=== PATIENT | female | born 1965 | race Caucasian/White ===

== ENCOUNTER 2020-09-26 07:13 | Emergency (ER) | payer OTHER ==
[~2020-09-26] VITALS: Ht 175.3 cm; Wt 78.0 kg
[2020-09-26 07:25] VITALS: BP 147/89
[2020-09-26] MEDS ORDERED: MECLIZINE HCL 12.5 MG TABLET. PO ONE (07:45)
--- NOTE | 2020-09-26 07:52 | ED.ADGEN ---
Past Medical History Past Medical History: High Cholesterol, Hypothyroid Past Surgical History: Cholecystectomy, , Hysterectomy, Other Additional Past Surgical Histo: LEFT FOOT Smoking Status: Never Smoker Alcohol Use: None General Adult EDM: Chief Complaint: EARACHE/EAR PAIN HPI: HPI: Patient is a 55 year old dizziness and ringing in her ear. Patient states she feels like things are spinning, better with rest and worse with movement. Woke up with symptoms this morning. Says she is nauseous but has not vomited. Has seen her ear nose and throat doctor for ear pain, was prescribed Augmentin and prednisone starting yesterday. Denies any fevers, headaches. Has taken Augment in in the past without problem, has not taken prednisone before. Review of Systems: Review of Systems: Constitutional: Denies fever or chills. [] Eyes: Denies change in visual acuity. [] HENT: Denies nasal congestion, but has left ear pain and fullness Respiratory: Denies cough or shortness of breath. [] Cardiovascular: Denies chest pain or edema. [] GI: Abdominal pain, nausea without vomiting : Denies dysuria. [] Musculoskeletal: Denies back pain or joint pain. [] Integument: Denies rash. [] Neurologic: Denies headache, focal weakness or sensory changes. [] Vertigo Endocrine: Denies polyuria or polydipsia. [] Lymphatic: Denies swollen glands. [] Psychiatric: Denies depression or anxiety. [] Current Medications: Current Medications Medications (Trade) Dose Ordered Sig/Colin Start Time Stop Time Status Last Admin Dose Admin Meclizine HCl (Antivert) 25 mg 1X ONCE 09/26/20 07:45 09/26/20 07:46 DC 09/26/20 07:56 25 MG Allergies: Allergies: Allergies Coded Allergies Type Severity Reaction Last Updated Verified No Known Drug Allergies 09/26/20 No Physical Exam: PE: Constitutional: Well developed, well nourished, no acute distress, non-toxic appearance. [] HENT: Normocephalic, atraumatic, bilateral external ears normal, oropharynx moist, no oral exudates, nose normal. [] Mild erythema of right TM, fluid behind left without purulence or bulging Eyes: PERRLA, EOMI, conjunctiva normal, no discharge. [] Neck: Normal range of motion, no tenderness, supple, no stridor. [] Cardiovascular:Heart rate regular rhythm, no murmur [] Lungs & Thorax: Bilateral breath sounds clear to auscultation [] Abdomen: Bowel sounds normal, soft, no tenderness, no masses, no pulsatile masses. [] Skin: Warm, dry, no erythema, no rash. [] Back: No tenderness, no CVA tenderness. [] Extremities: No tenderness, no cyanosis, no clubbing, ROM intact, no edema. [] Neurologic: Alert and oriented X 3, normal motor function, normal sensory function, no focal deficits noted. [] Leftward nystagmus Psychologic: Affect normal, judgement normal, mood normal. [] Current Patient Data: Vital Signs: Vital Signs Date Time Temp Pulse Resp B/P (MAP) Pulse Ox O2 Delivery O2 Flow Rate FiO2 09/26/20 07:25 98.6 85 16 147/89 (108) 95 Room Air 98.6 EKG: EKG: [] Heart Score: Risk Factors: Risk Factors: DM, Current or recent (<one month) smoker, HTN, HLP, family history of CAD, obesity. Risk Scores: Score 0 - 3: 2.5% MACE over next 6 weeks - Discharge Home Score 4 - 6: 20.3% MACE over next 6 weeks - Admit for Clinical Observation Score 7 - 10: 72.7% MACE over next 6 weeks - Early Invasive Strategies Radiology/Procedures: Radiology/Procedures: [] Course & Med Decision Making: Course & Med Decision Making History and physical exam consistent with peripheral vertigo. Given meclizine with resolution of symptoms. Advised patient to continue her treatment regimen prescribed by her ENT physician [] [place] Disclaimer: Naomi Disclaimer: This electronic medical record was generated, in whole or in part, using a voice recognition dictation system. Departure Departure Impression: Primary Impression: Vertigo Disposition: 01 DC HOME SELF CARE/HOMELESS Condition: IMPROVED Referrals: CIARA LERNER MD (PCP) Patient Instructions: Vertigo Scripts Meclizine Hcl (MECLIZINE HCL) 25 Mg Tablet 1 TAB PO TID for dizziness, #20 TAB Prov: ASHISH BAZAN MD 09/26/20 ASHISH BAZAN MD Sep 26, 2020 07:52
[2020-09-26] MEDS ORDERED: MECL-75 PO (08:42)
== END 2020-09-26 08:57 | disposition home or self-care (01) ==
LOC: ER 07:13
DX: R42 Dizziness and giddiness (principal); H93.11 Tinnitus, right ear; E78.00 Pure hypercholesterolemia, unspecified; E03.9 Hypothyroidism, unspecified
CPT/HCPCS: 99282; J8597

== ENCOUNTER 2020-11-28 15:16 | Emergency (ER) | payer OTHER ==
[~2020-11-28] VITALS: Ht 175.3 cm; Wt 75.0 kg
[~2020-11-28 15:16] MED LIST: MECL-75 PO
[2020-11-28 16:32] LABS: BASO # 0.1 x10^3/uL (0.0-0.2); BASO % 1 % (0-3); EOS # 0.1 x10^3/uL (0.0-0.7); EOS % 1 % (0-3); HEMATOCRIT 40.8 % (36.0-47.0); HEMOGLOBIN 14.1 g/dL (12.0-15.5); LYMPH # 1.8 x10^3/uL (1.0-4.8); LYMPH % 23 % (24-48); MEAN CORPUSCULAR HEMOGLOBIN 30 pg (25-35); MEAN CORPUSCULAR HGB CONC 35 g/dL (31-37); MEAN CORPUSCULAR VOLUME 87 fL (79-100); MONO # 0.7 x10^3/uL (0.0-1.1); MONO % 9 % (0-9); NEUT # 5.4 x10^3/uL (1.8-7.7); NEUT % 67 % (31-73); PLATELET COUNT 314 x10^3/uL (140-400); RED CELL DISTRIBUTION WIDTH 12.9 % (11.5-14.5); WHITE BLOOD COUNT 8.1 x10^3/uL (4.0-11.0)
[2020-11-28 16:38] LABS: BILIRUBIN,URINE NEGATIVE (NEG); CLARITY,URINE CLEAR; COLOR,URINE YELLOW; NITRITE,URINE NEGATIVE (NEG); PROTEIN,URINE NEGATIVE (NEG-TRACE); UROBILINOGEN,URINE 0.2 mg/dL (0.2 mg/dL)
--- NOTE | 2020-11-28 16:39 | RAD ---
Single view chest dated 11/28/2020: Comparison made to Clinical Indication: Chest pain. Findings: Single upright portable exam of the chest was performed. Heart size and mediastinal contours are with in normal limits given technique. The lungs are clear without evidence of focal consolidation. No ple ural effusion or pneumothorax. Impression:: Negative portable chest. Electronically signed by: Ramone Herrera MD (11/28/2020 4:37 PM) [id number]
[2020-11-28 16:40] LABS: BARBITURATES NEG (NEG); BENZODIAZEPINES NEG (NEG); CANNABINOIDS NEG (NEG); COCAINE NEG (NEG); METHADONE NEG (NEG); OPIATES NEG (NEG); PHENCYCLIDINE NEG (NEG)
[2020-11-28 16:42] LABS: AMPHETAMINE/METHAMPHETAMINE NEG (NEG)
[2020-11-28 16:56] LABS: BACTERIA,URINE 0 /HPF (0-FEW)
[2020-11-28 16:58] LABS: CALCIUM 9.5 mg/dL (8.5-10.1); CREATININE 0.7 mg/dL (0.6-1.0); GFR 86.2; POTASSIUM 4.3 mmol/L (3.5-5.1)
[2020-11-28 17:03] LABS: ALBUMIN 4.1 g/dL (3.4-5.0); ALBUMIN/GLOBULIN RATIO 1.4 (1.0-1.7); MAGNESIUM 2.3 mg/dL (1.8-2.4); TOTAL BILIRUBIN 0.5 mg/dL (0.2-1.0)
--- NOTE | 2020-11-28 18:32 | PHYS DOC ---
Past Medical History Past Medical History: Anxiety, High Cholesterol, Hypertension, Hypothyroid, Other Additional Past Medical Histor: TINNITUS,"INTRACRANIAL PRESSURE THING" Past Surgical History: Cholecystectomy, , Hysterectomy, Other Additional Past Surgical Histo: LEFT FOOT Smoking Status: Never Smoker Alcohol Use: None General Adult EDM: Chief Complaint: SHORTNESS OF BREATH HPI: HPI: Patient is a 55 year old female with a history of hypertension, high choles terol, anxiety, hypothyroidism, presenting to the ED today with multiple complaints. Patient states she has had intermittent episodes of elevated blood pressure for months. She states she has had episodes of nausea as well as getting scared about her blood pressure for months. She follows up with her PCP. She states the PCP has increased her blood pressure medicine dose as well as added a new blood pressure medicine. She was on carvedilol 6.25 and was increased to 12.5 mg, she also was started on losartan. She states her blood pressure is still spiking up. She appears very anxious and very fearful of everything she can think about medically. Review of Systems: Review of Systems: Constitutional: Denies fever or chills. [] Eyes: Denies change in visual acuity. [] HENT: Denies nasal congestion or sore throat. [] Respiratory: Reports shortness of breath, denies cough Cardiovascular: Reports elevated blood pressure. Denies chest pain or edema. [] GI: Denies abdominal pain, nausea, vomiting, bloody stools or diarrhea. [] : Denies dysuria. [] Musculoskeletal: Denies back pain or joint pain. [] Integument: Denies rash. [] Neurologic: Denies headache, focal weakness or sensory changes. [] [] Psychiatric: Reports anxiety Heart Score: Risk Factors: Risk Factors: DM, Current or recent (<one month) smoker, HTN, HLP, family history of CAD, obesity. Risk Scores: Score 0 - 3: 2.5% MACE over next 6 weeks - Discharge Home Score 4 - 6: 20.3% MACE over next 6 weeks - Admit for Clinical Observation Score 7 - 10: 72.7% MACE over next 6 weeks - Early Invasive Strategies Allergies: Allergies: Allergies Coded Allergies Type Severity Reaction Last Updated Verified No Known Drug Allergies 09/26/20 No Physical Exam: PE: Constitutional: Well developed, well nourished, no acute distress, non-toxic appearance. [] HENT: Normocephalic, atraumatic, bilateral external ears normal, oropharynx moist, no oral exudates, nose normal. [] Eyes: PERRLA, EOMI, conjunctiva normal, no discharge. [] Neck: Normal range of motion, no tenderness, supple, no stridor. [] Cardiovascular:Heart rate regular rhythm, no murmur [] Lungs & Thorax: Bilateral breath sounds clear to auscultation [] Abdomen: Bowel sounds normal, soft, no tenderness, no masses, no pulsatile masses. [] Skin: Warm, dry, no erythema, no rash. [] Back: No tenderness, no CVA tenderness. [] Extremities: No tenderness, no cyanosis, no clubbing, ROM intact, no edema. [] Neurologic: Alert and oriented X 3, normal motor function, normal sensory function, no focal deficits noted. [] Psychologic: Affect normal, judgement normal, mood normal. [] Current Patient Data: Labs: Laboratory Tests Test 11/28/20 16:13 White Blood Count 8.1 x10^3/uL (4.0-11.0) Red Blood Count 4.70 x10^6/uL (3.50-5.40) Hemoglobin 14.1 g/dL (12.0-15.5) Hematocrit 40.8 % (36.0-47.0) Mean Corpuscular Volume 87 fL (79-100) Mean Corpuscular Hemoglobin 30 pg (25-35) Mean Corpuscular Hemoglobin Concent 35 g/dL (31-37) Red Cell Distribution Width 12.9 % (11.5-14.5) Platelet Count 314 x10^3/uL (140-400) Neutrophils (%) (Auto) 67 % (31-73) Lymphocytes (%) (Auto) 23 % (24-48) L Monocytes (%) (Auto) 9 % (0-9) Eosinophils (%) (Auto) 1 % (0-3) Basophils (%) (Auto) 1 % (0-3) Neutrophils # (Auto) 5.4 x10^3/uL (1.8-7.7) Lymphocytes # (Auto) 1.8 x10^3/uL (1.0-4.8) Monocytes # (Auto) 0.7 x10^3/uL (0.0-1.1) Eosinophils # (Auto) 0.1 x10^3/uL (0.0-0.7) Basophils # (Auto) 0.1 x10^3/uL (0.0-0.2) Urine Collection Type Unknown Urine Color Yellow Urine Clarity Clear Urine pH 8.0 (<5.0-8.0) Urine Specific [place] <=1.005 (1.000-1.030) Urine Protein Negative mg/dL (NEG-TRACE) Urine Glucose (UA) Negative mg/dL (NEG) Urine Ketones (Stick) Negative mg/dL (NEG) Urine Blood Negative (NEG) Urine Nitrite Negative (NEG) Urine Bilirubin Negative (NEG) Urine Urobilinogen Dipstick 0.2 mg/dL (0.2 mg/dL) Urine Leukocyte Esterase Small (NEG) Urine RBC 1-2 /HPF (0-2) Urine WBC 1-4 /HPF (0-4) Urine Squamous Epithelial Cells Mod /LPF Urine Bacteria 0 /HPF (0-FEW) Sodium Level 131 mmol/L (136-145) L Potassium Level 4.3 mmol/L (3.5-5.1) Chloride Level 94 mmol/L (98-107) L Carbon Dioxide Level 26 mmol/L (21-32) Anion Gap 11 (6-14) Blood Urea Nitrogen 8 mg/dL (7-20) Creatinine 0.7 mg/dL (0.6-1.0) Estimated GFR (Cockcroft-Gault) 86.2 BUN/Creatinine Ratio 11 (6-20) Glucose Level 107 mg/dL (70-99) H Calcium Level 9.5 mg/dL (8.5-10.1) Magnesium Level 2.3 mg/dL (1.8-2.4) Total Bilirubin 0.5 mg/dL (0.2-1.0) Aspartate Amino Transferase (AST) 18 U/L (15-37) Alanine Aminotransferase (ALT) 23 U/L (14-59) Alkaline Phosphatase 66 U/L (46-116) Troponin I Quantitative < 0.017 ng/mL (0.000-0.055) YG-Rle-B-Type Natriuretic Peptide 128 pg/mL (0-124) H Total Protein 7.0 g/dL (6.4-8.2) Albumin 4.1 g/dL (3.4-5.0) Albumin/Globulin Ratio 1.4 (1.0-1.7) Thyroid Stimulating Hormone (TSH) 1.694 uIU/mL (0.358-3.74) Urine Opiates Screen Neg (NEG) Urine Methadone Screen Neg (NEG) Urine Barbiturates Neg (NEG) Urine Phencyclidine Screen Neg (NEG) Urine Amphetamine/Methamphetamine Neg (NEG) Urine Benzodiazepines Screen Neg (NEG) Urine Cocaine Screen Neg (NEG) Urine Cannabinoids Screen Neg (NEG) Ethyl Alcohol Level < 10 mg/dL (0-10) Urine Ethyl Alcohol Neg (NEG) Laboratory Tests 11/28/20 16:13 Laboratory Tests 11/28/20 16:13 Vital Signs: Vital Signs Date Time Temp Pulse Resp B/P (MAP) Pulse Ox O2 Delivery O2 Flow Rate FiO2 11/28/20 15:21 97.7 77 20 148/91 (110) 98 Room Air 97.7 EKG: EKG: [] Radiology/Procedures: Radiology/Procedures: []PROCEDURE: PORTABLE CHEST 1V Single view chest dated 11/28/2020: Comparison made to Clinical Indication: Chest pain. Findings: Single upright portable exam of the chest was performed. Heart size and media stinal contours are within normal limits given technique. The lungs are clear without evidence of focal consolidation. No pleural effusion or pneumothorax. Impression:: Negative portable chest. Electronically signed by: Ramone Herrera MD (11/28/2020 4:37 PM) [id number] DICTATED and SIGNED BY: RAMONE HERRERA MD DATE: 11/28/20 [id number] Course & Med Decision Making: Course & Med Decision Making Pertinent Labs and Imaging studies reviewed. (See chart for details) This is a 55-year-old female patient presenting to the ED today with multiple complaints. Patient has history of hypertension, anxiety among other illnesses and is complaining of feeling short of air for months, her blood pressure spiking up for months, and anxiety about health and life issues for months. Patient's labs, EKG, chest x-ray were negative for any acute findings. Blood pressure was 148/91. She was started on losartan today and is on coreg. She goes through another extensive fear of losartan stating she cannot take it with carvedilol. I spoke to patient at length. Informed her if her primary care doctor wants her to take carvedilol and losartan she needs to do it because her blood pressure still running high. RN states patient stated worrying she was put in a covid room with no negative pressure but has a scrabber. She was reassured. Patient has worried about everything medical thing she can come across. I also got Aure from the PAT team to talk to patient. They talked for a while, patient was very thankful for this visit. She was discharged to home follow-up with PCP Naomi Disclaimer: Naomi Disclaimer: This electronic medical record was generated, in whole or in part, using a voice recognition dictation system. Departure Departure Impression: Primary Impression: Anxiety Additional Impression: High blood pressure Qualified Codes: I10 - Essential (primary) hypertension Disposition: 01 DC HOME SELF CARE/HOMELESS Condition: STABLE Referrals: DIVYA CURRAN DO (PCP) Follow-up in the course of this week Patient Instructions: Anxiety and Panic Attacks, [id number], Hypertension Additional Instructions: You were evaluated in the emergency room. Please continue following up with your primary care doctor as well as a specialist. Come back to the ED at any point symptoms worsen LOLITA GONZALEZ APRN Nov 28, 2020 18:32
[2020-11-28 18:38] VITALS: BP 148/81
--- NOTE | 2020-11-29 17:19 | NUR ---
IP: Informed pt of positive COVID results and the need to quarantine for 10 days. Pt stated she is shocked because she has no symptoms, but verbalized understanding
== END 2020-11-28 18:49 | disposition home or self-care (01) ==
LOC: ER 15:16
DX: U07.1 COVID-19 (principal); I10 Essential (primary) hypertension; R11.0 Nausea; R06.02 Shortness of breath; F41.9 Anxiety disorder, unspecified; E78.00 Pure hypercholesterolemia, unspecified; E03.9 Hypothyroidism, unspecified; Z90.49 Acquired absence of other specified parts of digestive tract; Z90.710 Acquired absence of both cervix and uterus; Z98.890 Other specified postprocedural states
CPT/HCPCS: 36415; 71045; 80053; 80307; 81001; 83735; 83880; 84443; 84484; 85025; 87086; 93005; 99285; C9803; G0480; U0003

== ENCOUNTER 2021-01-04 15:34 | Emergency (ER) | payer OTHER ==
[~2021-01-04] VITALS: Ht 175.3 cm; Wt 72.0 kg
--- NOTE | 2021-01-04 16:53 | EKG ---
[facility] [address] [place] [address] Test Date: 2021-01-04 Test Time: 16:33:04 Pat Name: RENETTA SHEIKH Department: Room: Gender: F Prepress Supervisor: : [id number] Requested By: IRMA SRIVASTAVA Order Number: [id number] Reading MD: Measurements Intervals [place] Rate: 72 P: 58 AR: 126 QRS: 16 QRSD: 92 T: 28 QT: 390 QTc: 429 Interpretive Statements SINUS RHYTHM QRS(T) CONTOUR ABNORMALITY CONSIDER ANTEROLATERAL MYOCARDIAL DAMAGE T ABNORMALITY IN ANTERIOR LEADS ABNORMAL ECG RI6.01 No previous ECG available for comparison
[2021-01-04 16:59] LABS: BASO # 0.1 x10^3/uL (0.0-0.2); BASO % 1 % (0-3); EOS # 0.1 x10^3/uL (0.0-0.7); EOS % 1 % (0-3); HEMATOCRIT 42.4 % (36.0-47.0); HEMOGLOBIN 14.4 g/dL (12.0-15.5); LYMPH # 1.8 x10^3/uL (1.0-4.8); LYMPH % 21 % (24-48); MEAN CORPUSCULAR HEMOGLOBIN 30 pg (25-35); MEAN CORPUSCULAR HGB CONC 34 g/dL (31-37); MEAN CORPUSCULAR VOLUME 89 fL (79-100); MONO # 0.6 x10^3/uL (0.0-1.1); MONO % 7 % (0-9); NEUT # 5.8 x10^3/uL (1.8-7.7); NEUT % 70 % (31-73); PLATELET COUNT 342 x10^3/uL (140-400); RED BLOOD COUNT 4.76 x10^6/uL (3.50-5.40); RED CELL DISTRIBUTION WIDTH 13.4 % (11.5-14.5); WHITE BLOOD COUNT 8.3 x10^3/uL (4.0-11.0)
--- NOTE | 2021-01-04 17:15 | RAD ---
Chest AP portable 01/04/2021. Reason for exam: Chest pain. Comparison is made with a study 11/28/2020. No infiltrate or effusion is seen. Heart size and pulmonary vascularity appear normal. IMPRESSION: No acute abnormality. Electronically signed by: Juan Guthrie Jr., MD (01/04/2021 5:12 PM) [id number]
[2021-01-04 17:29] LABS: CALCIUM 8.8 mg/dL (8.5-10.1); CREATININE 0.9 mg/dL (0.6-1.0); GFR 64.5; POTASSIUM 3.5 mmol/L (3.5-5.1)
[2021-01-04 17:35] LABS: ALBUMIN 3.9 g/dL (3.4-5.0); ALBUMIN/GLOBULIN RATIO 1.6 (1.0-1.7); MAGNESIUM 2.2 mg/dL (1.8-2.4); TOTAL BILIRUBIN 0.5 mg/dL (0.2-1.0); TOTAL PROTEIN 6.4 g/dL (6.4-8.2)
[2021-01-04 17:39] LABS: CREATINE KINASE 65 U/L (26-192)
[2021-01-04] MEDS ORDERED: ALPRAZolam 0.25 MG TABLET PO ONE (18:15)
[2021-01-04 18:38] LABS: BILIRUBIN,URINE NEGATIVE (NEG); COLOR,URINE YELLOW; NITRITE,URINE NEGATIVE (NEG); PROTEIN,URINE NEGATIVE (NEG-TRACE); UROBILINOGEN,URINE 0.2 mg/dL (0.2 mg/dL)
[2021-01-04 18:40] LABS: CLARITY,URINE CLEAR
[2021-01-04 18:46] LABS: BACTERIA,URINE 0 /HPF (0-FEW); RBC,URINE 0 /HPF (0-2)
--- NOTE | 2021-01-04 18:56 | ED.ADGEN ---
Past Medical History Past Medical History: Anxiety, High Cholesterol, Hypertension, Hypothyroid Additional Past Medical Histor: TINNITUS,"INTRACRANIAL PRESSURE THING" Past Surgical History: No Surgical History Additional Past Surgical Histo: LEFT FOOT Smoking Status: Never Smoker Alcohol Use: None General Adult EDM: Chief Complaint: SHORTNESS OF BREATH HPI: HPI: Patient is a 55 year old female who presents to the emergency department with complaints of intermittent episodes of shortness of breath, palpitations, and chills. Patient reports that she had Covid in November 2020 and has been having these episodes since then. Patient reports that she has been taking 0.25 mg of Xanax for the episodes but then when she was at her primary care doctor's office yesterday her doctor told her to stop taking the Xanax and prescribed her Valium instead. Patient states she has taken the Valium today with no relief in her symptoms. She reports that she is also had some thyroid issues since having Covid and had to stop taking her thyroid medication for a short time but then was placed back on it. Patient denies any chest pain, fever, nausea, vomiting, diarrhea, abdominal pain, headache, dizziness, or body aches. She denies any swelling of her lower extremities or weakness. The patient currently denies any pain. She reports that she feels like she cannot catch her breath. Review of Systems: Review of Systems: Complete ROS is negative unless otherwise noted in HPI. Current Medications: Current Medications Medications (Trade) Dose Ordered Sig/Colin Start Time Stop Time Status Last Admin Dose Admin Alprazolam (Xanax) 0.25 mg 1X ONCE 01/04/21 18:15 01/04/21 18:16 DC 01/04/21 18:23 0.25 MG Allergies: Allergies: Allergies Coded Allergies Type Severity Reaction Last Updated Verified iodine Allergy Unknown 01/04/21 Yes Physical Exam: PE: See Above Constitutional: Well developed, well nourished, no acute distress, non-toxic appearance, anxious. [] HENT: Normocephalic, atraumatic, bilateral external ears normal, nose normal. [] Eyes: PERRLA, EOMI, conjunctiva normal, no discharge. [] Neck: Normal range of motion, no stridor. [] Cardiovascular:Heart rate regular rhythm Lungs & Thorax: Respirations even and unlabored, no retractions, no respiratory distress, no wheezing Skin: Warm, dry, no erythema, no rash. [] Extremities: No cyanosis, ROM intact, no edema. [] Neurologic: Alert and oriented X 3, normal motor, normal sensory, no focal deficits noted. [] Psychologic: Affect anxious, judgement normal, mood normal. [] Current Patient Data: Labs: Laboratory Tests Test 01/04/21 16:50 01/04/21 17:05 01/04/21 18:30 White Blood Count 8.3 x10^3/uL (4.0-11.0) Red Blood Count 4.76 x10^6/uL (3.50-5.40) Hemoglobin 14.4 g/dL (12.0-15.5) Hematocrit 42.4 % (36.0-47.0) Mean Corpuscular Volume 89 fL (79-100) Mean Corpuscular Hemoglobin 30 pg (25-35) Mean Corpuscular Hemoglobin Concent 34 g/dL (31-37) Red Cell Distribution Width 13.4 % (11.5-14.5) Platelet Count 342 x10^3/uL (140-400) Neutrophils (%) (Auto) 70 % (31-73) Lymphocytes (%) (Auto) 21 % (24-48) L Monocytes (%) (Auto) 7 % (0-9) Eosinophils (%) (Auto) 1 % (0-3) Basophils (%) (Auto) 1 % (0-3) Neutrophils # (Auto) 5.8 x10^3/uL (1.8-7.7) Lymphocytes # (Auto) 1.8 x10^3/uL (1.0-4.8) Monocytes # (Auto) 0.6 x10^3/uL (0.0-1.1) Eosinophils # (Auto) 0.1 x10^3/uL (0.0-0.7) Basophils # (Auto) 0.1 x10^3/uL (0.0-0.2) D-Dimer ([place]) < 0.27 ug/mlFEU Sodium Level 133 mmol/L (136-145) L Potassium Level 3.5 mmol/L (3.5-5.1) Chloride Level 101 mmol/L (98-107) Carbon Dioxide Level 23 mmol/L (21-32) Anion Gap 9 (6-14) Blood Urea Nitrogen 6 mg/dL (7-20) L Creatinine 0.9 mg/dL (0.6-1.0) Estimated GFR (Cockcroft-Gault) 64.5 BUN/Creatinine Ratio 7 (6-20) Glucose Level 113 mg/dL (70-99) H Calcium Level 8.8 mg/dL (8.5-10.1) Magnesium Level 2.2 mg/dL (1.8-2.4) Total Bilirubin 0.5 mg/dL (0.2-1.0) Aspartate Amino Transferase (AST) 16 U/L (15-37) Alanine Aminotransferase (ALT) 26 U/L (14-59) Alkaline Phosphatase 59 U/L (46-116) Creatine Kinase 65 U/L (26-192) Creatine Kinase MB (Mass) 0.7 ng/mL (0.0-3.6) Creatine Kinase MB Relative Index % (0-4) Troponin I Quantitative < 0.017 ng/mL (0.000-0.055) MH-Cyz-P-Type Natriuretic Peptide 198 pg/mL (0-124) H Total Protein 6.4 g/dL (6.4-8.2) Albumin 3.9 g/dL (3.4-5.0) Albumin/Globulin Ratio 1.6 (1.0-1.7) Lipase 104 U/L (73-393) Urine Collection Type Unknown Urine Color Yellow Urine Clarity Clear Urine pH 7.0 (<5.0-8.0) Urine Specific [place] <=1.005 (1.000-1.030) Urine Protein Negative mg/dL (NEG-TRACE) Urine Glucose (UA) Negative mg/dL (NEG) Urine Ketones (Stick) Trace mg/dL (NEG) Urine Blood Negative (NEG) Urine Nitrite Negative (NEG) Urine Bilirubin Negative (NEG) Urine Urobilinogen Dipstick 0.2 mg/dL (0.2 mg/dL) Urine Leukocyte Esterase Large (NEG) Urine RBC 0 /HPF (0-2) Urine WBC 1-4 /HPF (0-4) Urine Squamous Epithelial Cells Few /LPF Urine Bacteria 0 /HPF (0-FEW) Laboratory Tests 01/04/21 16:50 Laboratory Tests 01/04/21 17:05 Vital Signs: Vital Signs Date Time Temp Pulse Resp B/P (MAP) Pulse Ox O2 Delivery O2 Flow Rate FiO2 01/04/21 19:00 72 15 134/71 (92) 99 Room Air 01/04/21 17:00 98.8 98.8 EKG: EK-sinus rhythm, rate of 72, no STEMI, T wave inversion is present in the anterior leads read by Dr. Jeffries [] Heart Score: HEART Score for Chest Pain: HEART Score for Chest Pain Response (Comments) Value History Slighlty/Non-Suspicious 0 ECG Nonspecific Repolarizatio 1 Age >45 - < 65 1 Risk Factors 1 or 2 Risk Factors 1 Troponin < Normal Limit 0 Total 3 Risk Factors: Risk Factors: DM, Current or recent (<one month) smoker, HTN, HLP, family history of CAD, obesity. Risk Scores: Score 0 - 3: 2.5% MACE over next 6 weeks - Discharge Home Score 4 - 6: 20.3% MACE over next 6 weeks - Admit for Clinical Observation Score 7 - 10: 72.7% MACE over next 6 weeks - Early Invasive Strategies Radiology/Procedures: Radiology/Procedures: PROCEDURE: CHEST AP ONLY Chest AP portable 01/04/2021. Reason for exam: Chest pain. Comparison is made with a study 11/28/2020. No infiltrate or effusion is seen. Heart size and pulmonary vascularity appear normal. IMPRESSION: No acute abnormality. Electronically signed by: Juan Guthrie Jr., MD (01/04/2021 5:12 PM) [id number][] Course & Med Decision Making: Course & Med Decision Making Pertinent Labs and Imaging studies reviewed. (See chart for details) Patient presented to the emergency department with several complaints. Work-up included labs, chest x-ray, and medication. Patient CBC was unremarkable; D-dimer was not elevated; CMP revealed sodium 133, glucose of 113, BNP of 198, CK index and troponin were not elevated; urinalysis was unremarkable. Chest x-ray revealed no acute changes. EKG revealed no acute changes Patient was given 0.25 mg of Xanax in the emergency department, she reported fee ling better after taking this medication I advised the patient that her symptoms may be due to her thyroid they also could be due to post Covid complications. Patient reported that she had an appointment with nut grinder this week. I encouraged her to follow-up with nut grinder as scheduled. Advised the patient to continue taking the Xanax as previously prescribed if the Valium is not helping and to contact her primary care doctor about this concern. I advised the patient not to take Valium and Xanax at the same time. Patient's vital signs are stable throughout emergency department stay. Her oxygenation was 99% on room air and her breathing was unlabored. I encouraged patient to return to the ER if her symptoms worsened or fever develop. Patient verbalized an understanding of home care, medications, follow-up, and return to ED instructions and was in agreement with the plan of care. [] Dragon Disclaimer: Dragon Disclaimer: This electronic medical record was generated, in whole or in part, using a voice recognition dictation system. Departure Departure Impression: Primary Impression: Anxiety Additional Impression: Post-COVID syndrome Disposition: 01 DC HOME SELF CARE/HOMELESS Condition: STABLE Referrals: DIVYA CURRAN DO (PCP) Patient Instructions: Anxiety and Panic Attacks, [id number] Additional Instructions: If the Valium you were prescribed yesterday does not help as much as the Xanax that you were previously taking I would recommend that you take the Xanax instead of the Valium. Do not take both of these medications together. Follow- up with endocrinology as planned this week. Return to the emergency room if your symptoms worsen or fever develops. Problem Qualifiers IRMA SRIVASTAVA APRN Jan 04, 2021 18:56
[2021-01-04 19:00] VITALS: BP 134/71
== END 2021-01-04 19:00 | disposition home or self-care (01) ==
LOC: ER 15:34
DX: F41.9 Anxiety disorder, unspecified (principal); R06.02 Shortness of breath; R00.2 Palpitations; E78.00 Pure hypercholesterolemia, unspecified; I10 Essential (primary) hypertension; E03.9 Hypothyroidism, unspecified; Z88.8 Allergy status to other drugs, medicaments and biological substances
CPT/HCPCS: 36415; 71045; 80053; 81001; 82553; 83690; 83735; 83880; 84484; 85025; 85379; 87086; 93005; 99285

== ENCOUNTER 2021-02-16 20:18 | Emergency (ER) | payer OTHER ==
[~2021-02-16] VITALS: Ht 175.3 cm; Wt 71.0 kg
[2021-02-16 20:30] VITALS: BP 133/67
[2021-02-16] MEDS ORDERED: ONDANSETRON PF 4 MG/2 ML VIAL. IVP ONE (21:30)
[2021-02-16] MEDS ORDERED: MECLIZINE HCL 12.5 MG TABLET. PO ONE (21:30)
[2021-02-16] MEDS ORDERED: DEXAMETHASONE SOD PHOS 4 MG/ML VIAL IVP ONE (21:30)
[2021-02-16] MEDS ORDERED: IV NORMAL SALINE 1000ML BAG 1,000 ML IV ONE ×2 (21:30)
[2021-02-16 21:34] LABS: BASO % 0 % (0-3); EOS % 0 % (0-3); HEMOGLOBIN 13.7 g/dL (12.0-15.5); LYMPH % 10 % (24-48); MEAN CORPUSCULAR HEMOGLOBIN 31 pg (25-35); MEAN CORPUSCULAR HGB CONC 34 g/dL (31-37); MEAN CORPUSCULAR VOLUME 89 fL (79-100); MONO # 0.7 x10^3/uL (0.0-1.1); MONO % 7 % (0-9); NEUT # 8.6 x10^3/uL (1.8-7.7); NEUT % 83 % (31-73); PLATELET COUNT 289 x10^3/uL (140-400); RED BLOOD COUNT 4.48 x10^6/uL (3.50-5.40); RED CELL DISTRIBUTION WIDTH 12.4 % (11.5-14.5); WHITE BLOOD COUNT 10.4 x10^3/uL (4.0-11.0)
[2021-02-16 21:45] LABS: CALCIUM 8.6 mg/dL (8.5-10.1); GFR 56.9; POTASSIUM 3.3 mmol/L (3.5-5.1)
[2021-02-16 21:51] LABS: ALBUMIN 3.7 g/dL (3.4-5.0); ALBUMIN/GLOBULIN RATIO 1.3 (1.0-1.7); MAGNESIUM 1.9 mg/dL (1.8-2.4); TOTAL BILIRUBIN 0.4 mg/dL (0.2-1.0); TOTAL PROTEIN 6.5 g/dL (6.4-8.2)
[2021-02-16] MEDS ORDERED: FAMOTIDINE 20 MG/2 ML VIAL IVP ONE (22:00)
[2021-02-16 22:02] LABS: CREATINE KINASE 66 U/L (26-192)
--- NOTE | 2021-02-16 22:54 | PHYS DOC ---
Past Medical History Past Medical History: Anxiety, High Cholesterol, Hypertension, Hypothyroid Additional Past Medical Histor: TINNITUS,"INTRACRANIAL PRESSURE THING", dilated aorta Past Surgical History: No Surgical History Additional Past Surgical Histo: LEFT FOOT Smoking Status: Never Smoker Alcohol Use: None Drug Use: None General Adult EDM: Chief Complaint: CHEST PAIN HPI: HPI: Patient is a 56 year old female who presents to the emergency department with dizziness, nausea, vomiting, chest pain and intermittent shortness of air. Patient states that earlier this evening she was walking around her kitchen and bent over to open a cabinet and suddenly felt dizzy (like the room was spinning) and lightheaded and then sat down on the couch. Patient felt as if she would faint when trying to stand up from couch. Sitting did not alleviate her diz ziness, so then patient took meclizine which also did not help. Patient then began to feel very nauseous and started vomiting. She vomited frequently and denies hematemesis. Patient believes that vomiting caused her to have chest and abdominal pain which have subsided since coming to the emergency department. Patient mentioned that moving her head increases her dizziness, so she has been trying to keep head still. Route this event patient has had intermittent shortness of air. 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 Nadine ent also has past medical history of hypertension, tachycardia, tinnitus, dilated aorta. Patient denies fever, chills, diarrhea. Review of Systems: Review of Systems: Constitutional: Denies fever or chills Eyes: Denies redness or eye pain HENT: Denies nasal congestion or sore throat Respiratory: Complains of shortness of air, denies pleurisy Cardiovascular: Complains of chest pain, denies palpitations GI: Complains of nausea and vomiting : Denies dysuria or hematuria Musculoskeletal: Denies back pain or joint pain Integument: Denies rash or skin lesions Neurologic: Complains of dizziness, claims to have tingling in feet bilaterally. Complete systems were reviewed and found to be within normal limits, except as documented in this note. Heart Score: C/O Chest Pain: Yes HEART Score for Chest Pain: HEART Score for Chest Pain Response (Comments) Value History Slighlty/Non-Suspicious 0 ECG Normal 0 Age >45 - < 65 1 Risk Factors 1 or 2 Risk Factors 1 Troponin < Normal Limit 0 Total 2 Risk Factors: Risk Factors: HTN Risk Scores: Score 0 - 3: 2.5% MACE over next 6 weeks - Discharge Home Score 4 - 6: 20.3% MACE over next 6 weeks - Admit for Clinical Observation Score 7 - 10: 72.7% MACE over next 6 weeks - Early Invasive Strategies Family History: Family History: No relevant family history Current Medications: Diltiazem, Synthroid Current Medications Medications (Trade) Dose Ordered Sig/Colin Start Time Stop Time Status Last Admin Dose Admin Dexamethasone Sodium Phosphate (Decadron) 10 mg 1X ONCE 02/16/21 21:30 02/16/21 21:31 DC 02/16/21 21:32 10 MG Famotidine (Pepcid Vial) 20 mg 1X ONCE 02/16/21 22:00 02/16/21 22:01 DC Meclizine HCl (Antivert) 25 mg 1X ONCE 02/16/21 21:30 02/16/21 21:31 DC Ondansetron HCl (Zofran) 4 mg 1X ONCE 02/16/21 21:30 02/16/21 21:31 DC 02/16/21 21:31 4 MG Sodium Chloride 1,000 ml @ 1,000 mls/hr 1X ONCE 02/16/21 21:30 02/16/21 22:29 DC Allergies: Allergies: Allergies Coded Allergies Type Severity Reaction Last Updated Verified iodine Allergy Intermediate 02/16/21 Yes Physical Exam: PE: Constitutional: Well developed, well nourished, no acute distress, non-toxic appearance HENT: Normocephalic, atraumatic Eyes: PERRL, EOMI, conjunctiva normal, no discharge Neck: Patient refused range of motion exam for head and neck because of fear of dizziness, no tenderness, supple Lungs & Thorax: No respiratory distress, equal chest rise and fall, no reproducible chest pain to palpation, CTAB Abdomen: Soft, no tenderness 4 quadrants to deep palpation Skin: Warm, dry, no erythema, no rash Back: No tenderness, no CVA tenderness Extremities: No tenderness, ROM intact, no edema Neurologic: Alert and oriented X 3, normal motor function, normal sensory function, no focal deficits noted Psychologic: Affect normal, judgment normal Current Patient Data: Labs: Laboratory Tests Test 02/16/21 21:20 White Blood Count 10.4 x10^3/uL (4.0-11.0) Red Blood Count 4.48 x10^6/uL (3.50-5.40) Hemoglobin 13.7 g/dL (12.0-15.5) Hematocrit 40.0 % (36.0-47.0) Mean Corpuscular Volume 89 fL (79-100) Mean Corpuscular Hemoglobin 31 pg (25-35) Mean Corpuscular Hemoglobin Concent 34 g/dL (31-37) Red Cell Distribution Width 12.4 % (11.5-14.5) Platelet Count 289 x10^3/uL (140-400) Neutrophils (%) (Auto) 83 % (31-73) H Lymphocytes (%) (Auto) 10 % (24-48) L Monocytes (%) (Auto) 7 % (0-9) Eosinophils (%) (Auto) 0 % (0-3) Basophils (%) (Auto) 0 % (0-3) Neutrophils # (Auto) 8.6 x10^3/uL (1.8-7.7) H Lymphocytes # (Auto) 1.0 x10^3/uL (1.0-4.8) Monocytes # (Auto) 0.7 x10^3/uL (0.0-1.1) Eosinophils # (Auto) 0.0 x10^3/uL (0.0-0.7) Basophils # (Auto) 0.0 x10^3/uL (0.0-0.2) Sodium Level 135 mmol/L (136-145) L Potassium Level 3.3 mmol/L (3.5-5.1) L Chloride Level 100 mmol/L (98-107) Carbon Dioxide Level 23 mmol/L (21-32) Anion Gap 12 (6-14) Blood Urea Nitrogen 12 mg/dL (7-20) Creatinine 1.0 mg/dL (0.6-1.0) Estimated GFR (Cockcroft-Gault) 56.9 BUN/Creatinine Ratio 12 (6-20) Glucose Level 165 mg/dL (70-99) H Calcium Level 8.6 mg/dL (8.5-10.1) Magnesium Level 1.9 mg/dL (1.8-2.4) Total Bilirubin 0.4 mg/dL (0.2-1.0) Aspartate Amino Transferase (AST) 16 U/L (15-37) Alanine Aminotransferase (ALT) 22 U/L (14-59) Alkaline Phosphatase 57 U/L (46-116) Creatine Kinase 66 U/L (26-192) Creatine Kinase MB (Mass) < 0.5 ng/mL (0.0-3.6) Creatine Kinase MB Relative Index % (0-4) Troponin I Quantitative < 0.017 ng/mL (0.000-0.055) Total Protein 6.5 g/dL (6.4-8.2) Albumin 3.7 g/dL (3.4-5.0) Albumin/Globulin Ratio 1.3 (1.0-1.7) Lipase 93 U/L (73-393) Laboratory Tests 02/16/21 21:20 Laboratory Tests 02/16/21 21:20 EKG: EKG: At 9 PM, heart rate 75 bpm, sinus rhythm, prolonged QT interval 430 ms, QTc 492 ms, CO interval 136 ms, QRS 94 ms Radiology/Procedures: Radiology/Procedures: PROCEDURE: CT HEAD WO CONTRAST CT Head W/O Contrast: History: Reason: dizziness / Spl. Instructions: / History: Comparison: none Axial images were obtained without contrast. The robb and white matter appears normal and symmetrical for the patients age. There is no mass effect, extraaxial fluid collections or hydrocephalus. There is no gross bleed. There is no focal loss of robb-white matter distinction to suggest acute ischemia, i.e. stroke. Impression: No acute findings. RS Compliance Statement: One or more of the following individualized dose reduction techniques were utilized for this examination: 1. Automated exposure control 2. Adjustment of the mA and/or kV according to patient size 3. Use of iterative reconstruction technique Electronically signed by: Manolo Fischer III, MD (02/16/2021 11:02 PM) [facility] Course & Med Decision Making: Course & Med Decision Making 56-year-old female presents emergency department with dizziness, nausea, vomiting, chest pain, and abdominal pain. Patient bent over to look in a cabinet and was walking around kitchen and began to feel dizzy. Patient was given meclizine, steroids, and IV fluids. Labs and imaging were performed. Patient's dizziness improved slightly while in the emergency department, but did not completely subside. Patient was prescribed medication for nausea, dizziness, as well as a steroid for discharge. Patient stable for discharge with outpatient follow-up with PCP. Discussed findings and plan with patient, who acknowledges understanding and agreement. Naomi Disclaimer: Naomi Disclaimer: This electronic medical record was generated, in whole or in part, using a voice recognition dictation system. Departure Departure Impression: Primary Impression: Dizziness Additional Impression: Tinnitus Qualified Codes: H93.19 - Tinnitus, unspecified ear Disposition: 01 DC HOME SELF CARE/HOMELESS Condition: STABLE Referrals: DIVYA CURRAN DO (PCP) JACE CHANG MD Patient Instructions: Dizziness, [id number], Tinnitus, Vertigo, [id number] Scripts Prednisone (PREDNISONE) 20 Mg Tablet 2 TAB PO DAILY, #8 TAB Start this prescription tomorrow, Wednesday02/17/21 Prov: PALMIRA MILLER DO 02/16/21 Ondansetron (ONDANSETRON ODT) 4 Mg Tab.rapdis 1 TAB PO PRN Q6-8HRS PRN for NAUSEA, #16 TAB Prov: PALMIRA MILLER DO 02/16/21 PALMIRA MILLER DO Feb 16, 2021 22:53
--- NOTE | 2021-02-16 23:05 | RAD ---
CT Head W/O Contrast: History: Reason: dizziness / Spl. Instructions: / History: Comparison: none Axial images were obtained without contrast. The robb and white matter appears normal and symmetrical for the patients age. There is no mass effe ct, extraaxial fluid collections or hydrocephalus. There is no gross bleed. There is no focal loss of robb-white matter distinction to suggest acute ischemia, i.e. stroke. Impression: No acute findings. RS Compliance Statement: One or more of the following individualized dose reduction techniques were utilized for this examinat ion: 1. Automated exposure control 2. Adjustment of the mA and/or kV according to patient size 3. Use of iterative reconstruction technique Electronically signed by: Manolo Fischer III, MD (02/16/2021 11:02 PM) [facility]
--- NOTE | 2021-02-16 23:09 | RAD ---
XR CHEST 1V Clinical History: Reason: dizziness, intermittent SOA / Spl. Instructions: / History: Technique: AP view of the chest was obtained at 02/16/2021 9:44 PM. Comparison: January 04, 2021. Findings: The cardiomediastinal silhouette is normal. The pulmonary vasculature is normal. The lungs and pleura l margins are clear. Impression: No evidence of an acute cardiopulmonary process. Electronically signed by: Manolo Fischer III, MD (02/16/2021 11:06 PM) [facility]
[2021-02-16] MEDS ORDERED: ONDA4TAB12 PO (23:53)
[2021-02-16] MEDS ORDERED: PRED20TA PO (23:53)
--- NOTE | 2021-02-17 07:32 | EKG ---
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
== END 2021-02-17 00:41 | disposition home or self-care (01) ==
LOC: ER 20:18
DX: R42 Dizziness and giddiness (principal); R07.89 Other chest pain; H93.19 Tinnitus, unspecified ear; F41.9 Anxiety disorder, unspecified; E78.00 Pure hypercholesterolemia, unspecified; I10 Essential (primary) hypertension; E03.9 Hypothyroidism, unspecified; Z98.890 Other specified postprocedural states; Z91.041 Radiographic dye allergy status
CPT/HCPCS: 36415; 70450; 71045; 80053; 82553; 83690; 83735; 84484; 85025; 93005; 96361; 96374; 96375; 99285; J1100; J2405; J7030

== ENCOUNTER → 2021-08-05 | Outpatient (CLI) | payer OTHER ==
[~2021-08-05] MED LIST changes: +ONDA4TAB12 PO; +PRED20TA PO
--- NOTE | 2021-08-06 21:16 | SLEEP ---
DATE OF STUDY: 08/05/2021 SLEEP STUDY ATTENDING PHYSICIAN: Dr. Brittany Davidson. The patient is a 56-year-old who weighs 157 pounds with a BMI of 23. The patient's [place] score was 11. The patient had a home sleep study at [facility] and was found to have an RDI of 6 per hour. This was consistent with mild CARLOS ALBERTO. The patient was clinically symptomatic. As a result, she was referred for CPAP titration study. During the night study, the patient spent 433 minutes in bed and slept for 203 minutes with a low sleep efficiency of 47%. Sleep latency was 17 minutes with a REM latency of 93 minutes. Sleep architecture showed increased stage 1 and stage 2 sleep, absent slow wave and reduced REM sleep. The patient was started on CPAP at 5 cm water and titrated up to 7 cm water. At the final pressure, the patient slept for 100 minutes. The patient's AHI was reduced to 0 per hour and oxygen saturation remained above 92%. The patient had supine sleep, but no REM sleep at the final pressure. EKG monitoring revealed an average heart rate of 85 beats per minute. No sustained arrhythmias observed. Rare PACs were seen. No significant PLMS seen. IMPRESSION: 1. Mild sleep apnea diagnosed by previous sleep study. 2. No significant nocturnal hypoxia on therapeutic CPAP. RECOMMENDATIONS: 1. CPAP at 7 cm water completely eliminated the patient's sleep apnea and should be used on a nightly basis. 2. Follow up in 4-6 weeks to assess compliance and to document clinical improvement. 3. Avoid RN MEDICARE depressants. 4. Cautioned regarding driving until symptoms of sleep apnea resolve with above recommendations. VENTURA DR: Mary Ann TID: [id number] CC: Brittany Davidson
== END ==
LOC: SLPLAB 18:44
PROVIDERS: ATTEND Family Medicine
DX: G47.30 Sleep apnea, unspecified (principal); G47.10 Hypersomnia, unspecified
CPT/HCPCS: 95810